=== PATIENT | female | born 1955 | race Caucasian/White ===

== ENCOUNTER → 2016-08-12 | Outpatient (CLI) | payer BC ==
[~2016-08-12] MED LIST: ELIQUIS2.5 MG PO; GLUCOPHAGE1000 MG PO; INVOKANA100 MG PO; LIPITOR DPS10 MG PO; NEURONTIN DPS300 MG PO; TYLENOL DPS325 MG PO; ULTRAM DPS50 MG PO; VITAMIN B-121000 MCG PO; VITAMIN D31000 UNIT PO; ZESTRIL DPS10 MG PO
== END | disposition home or self-care (01) ==
LOC: RAD.S 12:25
DX: Z12.31 Encounter for screening mammogram for malignant neoplasm of breast (principal)